=== PATIENT | male | born 1955 | race African-American/Black ===

== ENCOUNTER 2020-10-22 01:28 | Emergency (ER) | payer MEDICARE, MEDICAID ==
[~2020-10-22] VITALS: Ht 172.7 cm; Wt 55.0 kg
[2020-10-22] MEDS ORDERED: MORPHINE SULFATE 4 MG/ML CPJ (NOT FOR IM USE) IV STA (02:02)
[2020-10-22 02:43] LABS: BASOPHILS % 1.2 % (0.0-2.0); EOSINOPHILS % 3.6 % (0.0-5.0); HEMATOCRIT. 40.2 % (42.0-52.0); HEMOGLOBIN. 13.1 g/dL (14.0-18.0); LYMPHOCYTES % 22.9 % (20.0-50.0); MEAN CORPUSCULAR HEMOGLOBIN 27.5 pg (28.0-32.0); MEAN CORPUSCULAR VOLUME 84.8 fL (80.0-94.0); MEAN PLATELET VOLUME 7.3 fl (7.4-10.4); MONOCYTES % 11.2 % (2.0-8.0); NEUTROPHILS % 61.1 % (40.0-76.0); PLATELET 290 x1000/uL (130-400); RED BLOOD CELL COUNT 4.75 mill/uL (4.7-6.1); RED CELL DISTRIBUTION WIDTH 16.2 % (11.6-14.6)
[2020-10-22] MEDS ORDERED: IOHEXOL-300 100 ML BOTTLE ONE (03:57)
[2020-10-22 05:30] VITALS: BP 125/84
== END 2020-10-22 05:50 | disposition home or self-care (01) ==
LOC: ER 01:28
DX: R10.30 Lower abdominal pain, unspecified (principal); R11.2 Nausea with vomiting, unspecified; R00.0 Tachycardia, unspecified; I45.10 Unspecified right bundle-branch block; K59.00 Constipation, unspecified; R03.0 Elevated blood-pressure reading, without diagnosis of hypertension; R74.02 Elevation of levels of lactic acid dehydrogenase [LDH]
CPT/HCPCS: 36415; 71045; 74177; 80048; 80076; 83605; 83690; 84484; 85025; 87040; 93005; 99285; Q9967